=== PATIENT | female | born 1950 | race Caucasian/White ===

== ENCOUNTER 2021-05-24 12:42 | Emergency (ER) | payer MEDICARE, SELFPAY ==
--- NOTE | ~2021-05-24 | XR_ITS ---
EXAMINATION: XR chest 2V DATE: 05/24/2021 13:30 INDICATION: Syncope with loss of consciousness post ground-level fall TECHNIQUE: frontal and lateral views of the chest were obtained. COMPARISON: None FINDINGS: No focal airspace opacities, pulmonary edema, pleural effusion or pneumothorax. The cardiomediastinal silhouette is normal. There are bridging osteophytes at multiple levels in the thoracic spine, consi stent with diffuse idiopathic skeletal hyperostosis (DISH). IMPRESSION: 1. No acute cardiopulmonary disease. Reviewed, dictated and finalized at location A.
--- NOTE | ~2021-05-24 | CT_ITS ---
EXAMINATION: CT brain wo con DATE: 05/24/2021 12:49 INDICATION: Fall with posterior head injury TECHNIQUE: Computed tomography (CT) of the head was performed without intravenous contrast. Sagittal and coronal reconstructions were performed. The mA was adjusted according to patient size. Iterative reconstruction technique was employed. The dose-length product was 605.33 mGy-cm. COMPARISON: None FINDINGS: Right posterior scalp hematoma. No fracture. No acute intracranial hemorrhage, acute infarction or ab normal extra axial fluid collection. Ventricles are normal and symmetric normal variant cavum septum pellucidum et vergae. No mass/mass effect. Changes of bilateral intraocular lens replacement. The orb its, paranasal sinuses and mastoid air cells are normal. IMPRESSION: 1. No fracture or acute intracranial process. Reviewed, dictated and finalized at location A.
[2021-05-24 13:00] VITALS: BP 132/73; PULSE 100; RESP 14; TEMP 36.7; O2SAT 100
--- NOTE | 2021-05-24 13:08 | ECG_ITS ---
Measurements Intervals [place] Rate: 98 P: 54 MT: 191 QRS: 24 QRSD: 120 T: 10 QT: 373 QTc: 477 Interpretive Statements SINUS RHYTHM POSSIBLE LEFT ATRIAL ENLARGEMENT [-0.1mV P WAVE IN V1/V2] RIGHT BUNDLE BRANCH BLOCK [120+ ms QRS DURATION, UPRIGHT V1, 40+ ms S IN I/aVL/V4/V5/V6] NO PREVIOUS ECG AVAILABLE FOR COMPARISON Electronically Signed On 05-24-2021 16:19:59 CDT by Omkar Cruz M.D.
[2021-05-24] MEDS: SODIUM CHLORIDE 0.9% IV 1,000 ML 999 ML IV CONT (13:14)
[2021-05-24 13:16] LABS: Basophils Percent Auto 0.3 % (0.2-1.2); Eosinophils Absolute Auto 0.1 K/mm3 (0-0.3); Hematocrit 41.3 % (37.0-47.0); Hemoglobin 13.5 g/dL (12.0-15.0); Immature Granulocyte Absolute 0.03 K/mm3 (0.00-0.031); Immature Granulocyte Percent A 0.4 % (0-0.5); Lymphocytes Absolute Auto 2.73 K/mm3 (0.9-3.2); Lymphocytes Percent Auto 39.5 % (18.3-44.2); Mean Corpuscular HGB Conc 32.7 g/dl (32-36); Mean Corpuscular Hemoglobin 29.5 pg (26-34); Mean Corpuscular Volume 90.4 fl (80-100); Mean Platelet Volume 8.9 fl (7.4-10.4); Monocytes Absolute Auto 0.4 K/mm3 (0.1-0.6); Monocytes Percent Auto 6.4 % (2.6-8.5); Neutrophils Absolute Auto 3.6 K/mm3 (1.3-6.7); Neutrophils Percent Auto 51.4 % (45.5-73.1); Platelet Count Result 233 k/mm3 (150-375); Red Blood Count 4.57 M/mm3 (4.2-5.4); Red Cell Distribution Width 13.7 % (11.5-14.5); White Blood Count 6.9 K/mm3 (4.5-10.0)
[2021-05-24 13:26] LABS: Anion Gap 9 mmol/L (8-16); Blood Urea Nitrogen 20 mg/dL (7-17); Calcium 9.6 mg/dL (8.4-10.2); Carbon Dioxide 25 mmol/L (22-30); Chloride 103 mmol/L (98-107); Estimated CRCL calculation 60 ml/min; Estimated Glomerular Filt Rate > 60; Glucose 96 mg/dL (65-110); Potassium 3.8 mmol/L (3.4-5.0); Sodium 137 mmol/L (137-145)
[2021-05-24 13:34] LABS: INR 0.9; Prothrombin Time 12.1 Seconds (11.1-14.7)
[2021-05-24 13:35] LABS: Partial Thromboplastin Time 29.7 SECONDS (22.3-36.8)
[2021-05-24 13:38] LABS: Troponin I < 0.012 ng/mL (0.000-0.034)
--- NOTE | 2021-05-24 15:10 | ED.GENADULT ---
HPI - General Adult General Chief complaint: Head Injury Stated complaint: Fall, AMS, head lac Time Seen by Provider: 05/24/21 12:48 History of Present Illness HPI narrative: Patient is a 71-year-old female who presents ER after having syncope. She was at the grocery store when she started feel dizzy and passed out. Denies chest pain or racing the heart. Reports this happens to her intermittently. She thinks it is because her blood sugar gets low. Patient was confused with some repetitive questioning for EMS but is now oriented x3. Denies history of seizures. No loss of bowel or bladder. Denies fevers chills or sweats. Related Data Allergies Allergy/AdvReac Type Severity Reaction Status Date / Time No Known Allergies Allergy Unverified 06/14/18 08:21 Review of Systems Review of Systems: All systems reviewed & are unremarkable except as noted in HPI and below Constitutional: Constitutional: Denies chills, Denies fever(s) and Denies weakness ENT: Denies nasal congestion and Denies sore throat Cardiovascular: Cardiovascular: Denies chest pain, Denies rapid heart rate and Denies radiating jaw, neck or arm pain Respiratory: Respiratory: Denies cough, Denies dyspnea and Denies wheezing Gastrointestinal: Gastrointestinal: Denies abdominal pain, Denies nausea and Denies vomiting Neurologic: Reports syncope, Denies headache(s), Denies focal weakness and Denies numbness PMFSH Past Medical History Medical History (Updated 05/24/21 @ 16:06 by Simone Chery MD) Diabetes Hypercholesterolemia Hypertension Surgical History Surgical History (Updated 05/24/21 @ 16:02 by Simone Chery MD) No pertinent past surgical history Exam Narrative: GENERAL: Well-appearing, well-nourished, and in no acute distress. HEAD: Normocephalic, ceases shaped 2 cm laceration to the posterior scalp. EYES: PERRLA and EOMI. ENT: Mucous membranes moist. NECK: Supple. No midline tenderness with normal range of motion. CHEST: Clear to auscultation. No respiratory distress. HEART: Regular rate and rhythm. Normal peripheral pulses. ABDOMEN: Soft, nontender, nondistended. EXTREMITIES: Normal range of motion. No edema. SKIN: Warm, dry, no rash. NEURO: Alert and oriented x3. No upper or lower extremity drift. Cranial nerves II through XII intact. PSYCH: Normal mood and affect. Course Course Emergency Course: Patient resting comfortably. Informed of results. Discussed possible of observation for syncope. Patient declines. Recommend follow-up with PCP and may require Holter monitoring since this is been a recurrent issue. Vital Signs Vital signs: Vital Signs Temperature 98.1 F 05/24/21 13:00 Pulse Rate 100 05/24/21 13:00 Respiratory Rate 14 05/24/21 13:00 Blood Pressure 132/73 05/24/21 13:00 Pulse Oximetry 100 05/24/21 13:00 Temperature 98.1 F 05/24/21 13:00 Pulse Rate 100 05/24/21 13:00 Respiratory Rate 14 05/24/21 13:00 Blood Pressure 132/73 05/24/21 13:00 Pulse Oximetry 100 05/24/21 13:00 Procedures Laceration Laceration 1: Date: 05/24/21 Time: 15:00 Site: scalp Size (cm): 2 Description: linear Depth: simple, single layer Local Anesthetic: none Pre-repair: wound explored and irrigated ====== Skin Level ====== Skin layer closed with: kimberly Number of sutures: 3 ====== Subcutaneous Layer ====== ====== Muscle Layer ====== ====== Tendon Layer ====== Medical Decision Making Vital Signs Vital Signs: Vital Signs Temperature 98.1 F 05/24/21 13:00 Pulse Rate 100 05/24/21 13:00 Respiratory Rate 14 05/24/21 13:00 Blood Pressure 132/73 05/24/21 13:00 Pulse Oximetry 100 05/24/21 13:00 Temperature 98.1 F 05/24/21 13:00 Pulse Rate 100 05/24/21 13:00 Respiratory Rate 14 05/24/21 13:00 Blood Pressure 132/73 05/24/21 13:00 Pulse Oximetry 100 05/24/21 13:00 L
[2021-05-24] MEDS: ACETAMINOPHEN 325 MG TABLET 650 MG PO (15:41)
[2021-05-24 15:57] LABS: Add Urine Microscopic? YES; Appearance Urine Clear (Clear); Bilirubin Urine Negative (Negative); Blood Urine Negative (Negative); Color Urine Yellow (Yellow); Glucose Urine UA Negative (Negative); Ketones Urine 1+ mg/dL (Negative); Leukocyte Esterase Ur Trace LEU/UL (Negative); Mucus Urine Rare /lpf; Nitrate Urine Negative (Negative); Protein Urine Negative (Negative); Specific Grav Ur 1.013 (1.001-1.035); Squamous Epithelial Cell Urine Rare /hpf (Few); Urobilinogen Urine Negative mg/dL (<2.0); WBC Urine 0-3 /hpf
[2021-05-24 16:50] VITALS: BP 141/77; PULSE 101; RESP 18; O2SAT 100
[2021-05-24 17:04] LABS: Glucose Point of Care 119 mg/dl (65-105)
== END 2021-05-24 16:51 | disposition home or self-care (01) ==
PROVIDERS: Emergency Provider Emergency Medicine; PCP Internal Medicine
DX: R55 Syncope and collapse (principal); S01.01XA Laceration without foreign body of scalp, initial encounter; E11.9 Type 2 diabetes mellitus without complications; E78.00 Pure hypercholesterolemia, unspecified; I10 Essential (primary) hypertension; W18.39XA Other fall on same level, initial encounter; I45.10 Unspecified right bundle-branch block; R94.31 Abnormal electrocardiogram [ECG] [EKG]
CPT/HCPCS: 12001; 36415; 70450; 71046; 80048; 81001; 82948; 84484; 85025; 85610; 85730; 93005; 96360; 96361; 99284; A9270; J7030